=== PATIENT | female | born 1965 | race Caucasian/White ===

== ENCOUNTER 2016-08-19 19:14 | Emergency (ER) | payer BC, MEDICAID ==
[~2016-08-19] VITALS: Ht 167.6 cm; Wt 58.1 kg
[~2016-08-19 19:14] MED LIST: AMOX500T2 PO; NEOM10DR11 OT
[2016-08-19] MEDS ORDERED: ONDANSETRON ODT 4 MG TAB.RAPDIS SL ONE (20:00)
[2016-08-19] MEDS ORDERED: OXYCODONE/APAP 5-325 MG TABLET PO ONE (20:00)
[2016-08-19] MEDS ORDERED: ONDANSETRON ODT 4 MG TAB.RAPDIS ONE (20:15)
[2016-08-19] MEDS ORDERED: OXYCODONE/APAP 5-325 MG TABLET ONE (20:15)
[2016-08-19 20:39] LABS: *BILIRUBIN,URIN NEGATIVE (NEGATIVE); *BLOOD, URINE NEGATIVE (NEGATIVE); *CLARITY,URINE CLEAR (CLEAR); *COLOR,URINE YELLOW (YELLOW); *KETONES,URINE NEGATIVE (NEGATIVE); *PROTEIN,URINE NEGATIVE (NEGATIVE); *UROBILINOGEN,URINE 0.2 E.U./dl (NORMAL); LEUKOCYTE ESTERASE ,URINE NEGATIVE (NEGATIVE); NITRITE, URINE NEGATIVE (NEGATIVE); UGLUCOSE NEGATIVE (NEGATIVE)
--- NOTE | 2016-08-19 20:55 | NUR ---
Patient discharged to home in stable conditon. Written and verbal after care instructions given. Patient verbalizes understanding of instructions. Ambulated from ER with stable gait. All belongings with patient.
[2016-08-19 20:58] VITALS: BP 128/78
[2016-08-19 20:58] LABS: MUCUS,URINE MODERATE /LPF (0-FEW); RBC,URINE 0-3 /HPF (0-3); SQUAMOUS EPITHELIAL CELL,UR FEW /HPF (NONE SEEN)
--- NOTE | 2016-08-19 20:59 | NUR ---
Patient will be driven home by her friend in a private vehicle .
== END 2016-08-19 20:59 | disposition home or self-care (01) ==
LOC: ER 19:14
DX: M54.16 Radiculopathy, lumbar region (principal)
CPT/HCPCS: A4663; Q0162

== ENCOUNTER 2016-12-16 17:29 | Emergency (ER) | payer BC ==
[~2016-12-16] VITALS: Ht 167.6 cm; Wt 59.0 kg
--- NOTE | 2016-12-16 18:51 | NUR ---
ASSISSTED MD WITH EXAMINING THE PT.
--- NOTE | 2016-12-16 20:30 | NUR ---
Patient discharged to home in stable conditon. Written and verbal after care instructions given. Patient verbalizes understanding of instructions.
== END 2016-12-16 20:30 | disposition home or self-care (01) ==
LOC: ER 17:29
DX: S32.10XA Unspecified fracture of sacrum, initial encounter for closed fracture (principal); S32.2XXA Fracture of coccyx, initial encounter for closed fracture; W18.30XA Fall on same level, unspecified, initial encounter; Y93.89 Activity, other specified; Y99.8 Other external cause status; Y92.89 Other specified places as the place of occurrence of the external cause
CPT/HCPCS: 72192; 99284; A4663

== ENCOUNTER 2017-09-07 23:55 | Emergency (ER) | payer BC ==
[~2017-09-07] VITALS: Ht 167.6 cm; Wt 56.7 kg
--- NOTE | 2017-09-08 00:36 | NUR ---
PT SUFFERS FROM CHRONIC KNEE PAIN. PT HAD AN EXACERBATION 2 DAYS AGO. MD ROMAN AT BEDSIDE CONDUCTING MED EVAL. NO SIGNS OR SYMPTOMS OF DISTRESS WITNESSED BY NURSE OR EXPRESSED BY PT.
--- NOTE | 2017-09-08 01:15 | NUR ---
Patient discharged to home in stable conditon. Written and verbal after care instructions given. Patient verbalizes understanding of instructions. Patient reported reduced knee upon discharge. Patient able to ambulate unassisted, while wearing a knee immobilizer, with steady gait. Patient declined the need of cane or crutches when offered prior to discharge. Patient was given a copy of left knee x-ray on CD. Patient left with all personal belongings.
[2017-09-08 01:18] VITALS: BP 110/82
== END 2017-09-08 01:15 | disposition home or self-care (01) ==
LOC: ER 23:55
DX: M23.92 Unspecified internal derangement of left knee (principal); Z90.49 Acquired absence of other specified parts of digestive tract; Z79.2 Long term (current) use of antibiotics; Z79.899 Other long term (current) drug therapy
CPT/HCPCS: 73560; A4663

== ENCOUNTER 2018-10-08 21:34 | Emergency (ER) | payer BC ==
[~2018-10-08] VITALS: Ht 167.6 cm; Wt 56.7 kg
[2018-10-08] MEDS ORDERED: LORA-782 PO (21:43)
[2018-10-08] MEDS ORDERED: predniSONE 20 MG TABLET PO ONE (22:15)
[2018-10-08] MEDS ORDERED: diphenhydrAMINE 50 MG CAPSULE PO ONE (22:15)
[2018-10-08] MEDS ORDERED: predniSONE 20 MG TABLET ONE (22:27)
[2018-10-08] MEDS ORDERED: diphenhydrAMINE 50 MG CAPSULE ONE (22:28)
[2018-10-08 22:42] VITALS: BP 109/75
== END 2018-10-08 22:43 | disposition home or self-care (01) ==
LOC: ER 21:34
DX: T78.3XXA Angioneurotic edema, initial encounter (principal); R07.89 Other chest pain; Z90.49 Acquired absence of other specified parts of digestive tract; Z79.2 Long term (current) use of antibiotics; Z79.899 Other long term (current) drug therapy
CPT/HCPCS: 71045; 93005; 99283; J7512; A4663; Q0163

== ENCOUNTER 2019-06-28 00:32 | Emergency (ER) | payer BC ==
[~2019-06-28] VITALS: Ht 167.6 cm; Wt 63.5 kg
[2019-06-28] MEDS ORDERED: LORAZEPAM 2 MG/1 ML VIAL IV ONE ×2 (01:00→02:45)
[2019-06-28] MEDS ORDERED: LET TOPICAL SOLUTION 8 ML UDC TP ONE (01:00)
[2019-06-28] MEDS ORDERED: VANCOMYCIN IV 1,000 MG in IV DEXTROSE 5% 250 ML IV ONE (01:00)
[2019-06-28] MEDS ORDERED: VANCOMYCIN IV 200 ML ONE (01:03)
[2019-06-28] MEDS ORDERED: LORAZEPAM 2 MG/1 ML VIAL ONE ×2 (01:04→01:32)
[2019-06-28] MEDS ORDERED: LET TOPICAL SOLUTION 8 ML UDC ONE (01:05)
[2019-06-28] MEDS ORDERED: ONDANSETRON 4 MG/2 ML VIAL ONE (01:44)
[2019-06-28] MEDS ORDERED: MORPHINE SULFATE 4 MG/1 ML DISP.SYRIN ONE ×2 (01:44→01:52)
[2019-06-28] MEDS ORDERED: METRONIDAZOLE 250 MG TABLET ONE (02:27)
[2019-06-28] MEDS ORDERED: LIDOCAINE HCL 2% 20 ML VIAL TP ONE (02:45)
[2019-06-28] MEDS ORDERED: SODIUM BICARBONATE 4.2 % (NEUT) 5 ML VIAL TP ONE (02:45)
[2019-06-28] MEDS ORDERED: METRONIDAZOLE 250 MG TABLET PO ONE (02:45)
[2019-06-28] MEDS ORDERED: MORPHINE SULFATE 4 MG/1 ML DISP.SYRIN IV ONE ×2 (02:45)
[2019-06-28] MEDS ORDERED: ONDANSETRON 4 MG/2 ML VIAL IV ONE (02:45)
[2019-06-28] MEDS ORDERED: diphenhydrAMINE 50 MG/1 ML VIAL IV ONE (03:00)
[2019-06-28] MEDS ORDERED: diphenhydrAMINE 50 MG/1 ML VIAL ONE (03:01)
[2019-06-28 04:08] VITALS: BP 108/72
== END 2019-06-28 04:08 | disposition home or self-care (01) ==
LOC: ER 00:35
DX: L02.31 Cutaneous abscess of buttock (principal); Z90.49 Acquired absence of other specified parts of digestive tract; Z79.899 Other long term (current) drug therapy
CPT/HCPCS: A4217; A4663; J1200; J2060; J2270; J2405; J3370; J3490